=== PATIENT | female | born 1960 | race Caucasian/White ===

== ENCOUNTER 2022-05-14 17:27 | Emergency (ER) | payer BC, SELFPAY ==
[2022-05-14 17:46] VITALS: BP 136/83; PULSE 89; RESP 16; TEMP 37.3; O2SAT 100
--- NOTE | 2022-05-14 18:04 | ED.SKABFB ---
HPI - Skin/Abscess/Foreign Bdy General Stated complaint: Blister on left foot Time Seen by Provider: 05/14/22 18:05 Source: patient Mode of arrival: ambulatory Limitations: no limitations History of Present Illness HPI narrative: Ms. Giordano is a 61-year-old female patient presenting to the clinic today with complaints of a blister to her left heel. She reports this is been here for approximately 5 days. States that she has to wear nonslip special shoes for work and this rubs against this area. She has since changed her shoes and has had some relief however she does have a blister in this area. Review of Systems Review of Systems: Pertinent positives per HPI. Patient denies any fever, chills, rash, headache, visual changes, dizziness, cough, runny nose, sore throat, shortness of breath, chest pain, palpitations, nausea, vomiting, diarrhea, constipation, abdominal pain, or any urinary issues. PMFSH Comments At the time of my signature, I reviewed and agree with the nursing past medical, surgical, social, and family history. There is no relevant family history pertinent to the patient complaint. Exam Narrative: General: Well-developed, well nourished, in no apparent distress Head: Normocephalic, atraumatic. Cardio: Regular rate and rhythm, s1 and s2 normal, no murmur appreciated. Resp: Clear to auscultation bilaterally, no rhonchi, rales, wheezing or rubs. Integumentary: [place], warm, and dry, blood blister lesion to the left medial heel-approximately size of a quarter. Mild redness to the top of the surrounding skin tissue but does not appear to be infected Course Course Emergency Course: Portions of this record may have been created with voice recognition software. Level of Care: Express Care Visit Vital Signs Vital signs: Vital Signs Temperature 37.3 C 05/14/22 17:46 Pulse Rate 89 05/14/22 17:46 Respiratory Rate 16 05/14/22 17:46 Blood Pressure 136/83 05/14/22 17:46 Pulse Oximetry 100 05/14/22 17:46 Oxygen Delivery Room Air 05/14/22 17:46 Temperature 37.3 C 05/14/22 17:46 Pulse Rate 89 05/14/22 17:46 Respiratory Rate 16 05/14/22 17:46 Blood Pressure 136/83 05/14/22 17:46 Pulse Oximetry 100 05/14/22 17:46 Oxygen Delivery Room Air 05/14/22 17:46 Vital signs reviewed MDM - Skin/Abscess/Foreign Bdy MDM Narrative Medical decision making narrative: At the time of visit patient is resting comfortably on the exam table. Patient has a blood blister to her left medial heel. Supportive measures were discussed with the patient she voiced understanding of discharge instructions and agrees to treatment plan Differential Diagnosis Differential diagnosis: Likely abscess of skin or subcutaneous tissue and other (Infected blister) Discharge Plan Discharge Clinical Impression: Blood blister Patient Disposition: Home, Self-Care Condition: Stable Instructions: Antibiotic Form, Blister (ED) Additional Instructions: Cushion the area is using a Band-Aid Avoid popping the blister May take Tylenol/Motrin as needed for pain Watch for signs and symptoms of infection such as increased redness, swelling, pain, purulent discharge, or streaking Follow-up/Referrals: Phuc,MD Usama [Primary Care Provider] - Time of Disposition: 18:09 Quality NIHSS Nursing Documentation ED NIHSS nursing documentation: reviewed/agree
== END 2022-05-14 18:20 | disposition home or self-care (01) ==
PROVIDERS: Emergency Provider Nurse Practitioner Family; PCP Internal Medicine
DX: S90.822A Blister (nonthermal), left foot, initial encounter (principal); X58.XXXA Exposure to other specified factors, initial encounter
CPT/HCPCS: 99202; G0463

== ENCOUNTER 2022-09-03 17:03 | Emergency (ER) | payer OTHER, BC, SELFPAY ==
[2022-09-03 17:15] VITALS: BP 156/99; PULSE 100; RESP 20; TEMP 37.1; O2SAT 98
--- NOTE | 2022-09-03 17:31 | ED.WOUNDLAC ---
HPI - Wound/Laceration General Chief Complaint: Wound/Laceration Stated Complaint: Laceration Left Hand Time Seen by Provider: 09/03/22 17:31 Source: patient Mode of arrival: ambulatory Limitations: no limitations History of Present Illness HPI narrative: 62-year-old female presented for complaint of laceration to the left hand about 1 hour prior to arrival. She states she was using clippers bowel making a grave blanket at the [employer], and clipped the left hand. This resulted in an L-shaped laceration (ulnar surface). She applied pressure but the site continues to bleed. She is not on blood thinners. She is unsure of her last tetanus vaccination. She denies decreased range of motion, numbness, tingling, weakness of the hand. Related Data Home Medications Medication Instructions Recorded Confirmed albuterol sulfate 90 mcg/actuation 90 mcg inhalation DIRECTED 05/14/22 09/03/22 aerosol inhaler valsartan 80 1 tablet PO DAILY 05/14/22 09/03/22 mg-hydrochlorothiazide 12.5 mg tablet fluticasone propionate 50 1 spray intranasal DIRECTED 09/03/22 09/03/22 mcg/actuation nasal spray,suspension Allergies Allergy/AdvReac Type Severity Reaction Status Date / Time No Known Allergies Allergy Verified 09/03/22 17:32 Review of Systems Review of Systems: CONSTITUTIONAL: Denies body aches, fever, chills, or sweats. EYES: Denies visual changes, redness, or discharge. ENT: Denies rhinorrhea, congestion CARDIOVASCULAR: Denies chest pain, palpitations, or edema. RESPIRATORY: Denies cough or dyspnea. GASTROINTESTINAL: Denies abdominal pain, nausea, vomiting, or diarrhea. SKIN: per HPI MUSCULOSKELETAL: Denies back pain, joint pain, or myalgia. NEUROLOGIC: Denies headache, numbness, tingling, or weakness. PMFSH Comments At time of signature, I have reviewed and agree with nursing past medical, surgical, social and family history unless otherwise noted. Please see nursing chart for further information. There is no relevant family history pertinent to the presenting complaint Exam Narrative: GENERAL: Well-appearing HEAD: Normocephalic, atraumatic. EYES: conjunctivae clear, and EOMI. ENT: Mucous membranes moist. Oropharynx without edema, erythema or lesions. NECK: Supple. No lymphadenopathy CHEST: Clear to auscultation. HEART: Regular rate and rhythm. SKIN: Warm, dry. [id number] L-shaped laceration to palmar/ulnar surface of left hand, active bleeding. CMS intact. NEURO: Alert and oriented x3. Course Course Emergency Course: Patient is aware of diagnosis, understands and agrees to treatment plan. Anticipatory guidance given. Patient agrees to follow-up as directed and is aware of reasons to seek care at the emergency department. Portions of this record may have been created with voice recognition software Level of Care: Express Care Visit Vital Signs Vital signs: Vital Signs Temperature 98.7 F 09/03/22 17:15 Pulse Rate 100 09/03/22 17:15 Respiratory Rate 20 09/03/22 17:15 Blood Pressure 156/99 H 09/03/22 17:15 Pulse Oximetry 98 09/03/22 17:15 Oxygen Delivery Room Air 09/03/22 17:15 Temperature 98.7 F 09/03/22 17:15 Pulse Rate 100 09/03/22 17:15 Respiratory Rate 20 09/03/22 17:15 Blood Pressure 156/99 H 09/03/22 17:15 Pulse Oximetry 98 09/03/22 17:15 Oxygen Delivery Room Air 09/03/22 17:15 Reviewed Procedures Laceration left hand: Date: 09/03/22 Description: linear (L-shape) Depth: simple, single layer Local Anesthetic: lidocaine 1% Amount of anesthesia used (mL): 5 Pre-repair: wound explored and irrigated extensively ====== Skin Level ====== Skin layer closed with: nylon Size (cm): 5-0 Number of sutures: 7 Technique: simple, interrupted ====== Subcutaneous Layer ====== ====== Muscle Layer ====== ====== Tendon Layer ====== Dressing: Wound
[2022-09-03] MEDS: TETANUS,DIPHTHERIA,AC PERTUSSIS ADULT (0.5 ML) BOOSTRIX IM (18:10)
== END 2022-09-03 18:25 | disposition home or self-care (01) ==
PROVIDERS: Emergency Provider Nurse Practitioner Family; PCP Internal Medicine
DX: S61.412A Laceration without foreign body of left hand, initial encounter (principal); W27.8XXA Contact with other nonpowered hand tool, initial encounter; Y99.0 Civilian activity done for income or pay; Z23 Encounter for immunization; I10 Essential (primary) hypertension; J45.909 Unspecified asthma, uncomplicated
CPT/HCPCS: 12001; 90471; 90715; 99213; G0463

== ENCOUNTER 2022-09-16 19:40 | Emergency (ER) | payer OTHER, BC, SELFPAY ==
--- NOTE | 2022-09-16 19:46 | ED.WOUNDLAC ---
HPI - Wound/Laceration General Chief Complaint: Skin/Abscess/Foreign Body Stated Complaint: stitch removal Time Seen by Provider: 09/16/22 20:00 Source: patient Mode of arrival: ambulatory Limitations: no limitations History of Present Illness HPI narrative: Ms. Looney is a 62-year-old female patient presenting to clinic today for a suture removal to her left hand. She reports that she had 7 or original sutures to the left hand done 12 days ago. However all the sutures have come out except for 1. She is here today to have the 1 suture removed and the wound seems to be healing well. Related Data Home Medications Medication Instructions Recorded Confirmed albuterol sulfate 90 mcg/actuation 90 mcg inhalation DIRECTED 05/14/22 09/03/22 aerosol inhaler valsartan 80 1 tablet PO DAILY 05/14/22 09/03/22 mg-hydrochlorothiazide 12.5 mg tablet fluticasone propionate 50 1 spray intranasal DIRECTED 09/03/22 09/03/22 mcg/actuation nasal spray,suspension Allergies Allergy/AdvReac Type Severity Reaction Status Date / Time No Known Allergies Allergy Verified 09/16/22 19:55 Review of Systems Review of Systems: Pertinent positives per HPI. Patient denies any fever, chills, rash, headache, visual changes, dizziness, cough, runny nose, sore throat, shortness of breath, chest pain, palpitations, nausea, vomiting, diarrhea, constipation, abdominal pain, or any urinary issues. PMFSH Comments At the time of my signature, I reviewed and agree with the nursing past medical, surgical, social, and family history. There is no relevant family history pertinent to the patient complaint. Exam Narrative: General: Well-developed, well nourished, in no apparent distress Head: Normocephalic, atraumatic. Cardio: Regular rate and rhythm, s1 and s2 normal, no murmur appreciated. Resp: Clear to auscultation bilaterally, no rhonchi, rales, wheezing or rubs. Integumentary: [place], warm, and dry, intact without lesion, no rashes. Well-healing wound to the lateral aspect of the left hand with 1 suture still intact. This suture was removed in the clinic today. No signs of infection. Course Course Emergency Course: Portions of this record may have been created with voice recognition software. Level of Care: Express Care Visit Vital Signs Vital signs: Vital Signs Temperature 36.6 C 09/16/22 19:51 Pulse Rate 86 09/16/22 19:51 Respiratory Rate 18 09/16/22 19:51 Blood Pressure 142/76 H 09/16/22 19:51 Pulse Oximetry 97 09/16/22 19:51 Oxygen Delivery Room Air 09/16/22 19:51 Temperature 36.6 C 09/16/22 19:51 Pulse Rate 86 09/16/22 19:51 Respiratory Rate 18 09/16/22 19:51 Blood Pressure 142/76 H 09/16/22 19:51 Pulse Oximetry 97 09/16/22 19:51 Oxygen Delivery Room Air 09/16/22 19:51 Vital signs reviewed MDM - Wound/Laceration MDM Narrative Medical decision making narrative: At the time of visit patient is resting comfortably on exam table. She has 1 suture in the left lateral hand. This suture was removed. Supportive measures were discussed with the patient she voiced understanding of discharge instructions and agrees to treatment plan. Differential Diagnosis Differential diagnosis: Likely other ( Suture removal) Discharge Plan Discharge Clinical Impression: Encounter for removal of sutures Patient Disposition: Home, Self-Care Condition: Stable Instructions: Antibiotic Form, Stitches Removal (ED) Additional Instructions: Sutures were removed in the clinic today. Keep area clean and dry. Follow-up with as needed. Prescriptions: No Action valsartan-hydrochlorothiazide 80-12.5 mg tablet 1 tablet PO DAILY albuterol sulfate 90 mcg/actuation HFA aerosol inhaler 90 mcg INHALATION DIRECTED fluticasone propionate 50 mcg/actuation spray,suspension 1 spray INTRANASAL DIRECTED Follow-up/Referrals: UNKNOWN,DOCTOR [Елена
[2022-09-16 19:51] VITALS: BP 142/76; PULSE 86; RESP 18; TEMP 36.6; O2SAT 97
== END 2022-09-16 20:03 | disposition home or self-care (01) ==
PROVIDERS: Emergency Provider Nurse Practitioner Family
DX: Z48.02 Encounter for removal of sutures (principal)
CPT/HCPCS: 99211; G0463